=== PATIENT | female | born 1965 | race Caucasian/White ===

== ENCOUNTER 2019-01-18 23:36 | Emergency (ER) | payer OTHER ==
[~2019-01-18] VITALS: Ht 152.4 cm; Wt 70.3 kg
[~2019-01-18 23:36] MED LIST: CYCLOBENZAPRINE10 MG PO; INDERAL10 MG PO; KEPPRA500 MG PO; MAXALT10 MG PO; TIROSINT88 MCG PO; TRIAMTERENE-HCT1 TA1 PO; ULTRAM50 MG PO; ZOFRAN ODT4 MG/UDTAB PO
[2019-01-18 23:41] VITALS: Ht 152.4 cm; Wt 70.3 kg
[2019-01-18] MEDS ORDERED: OMEPRAZOLE20 M1 PO (23:44)
[2019-01-18] MEDS ORDERED: MOBIC7.5 MG PO (23:45)
[2019-01-18] MEDS ORDERED: CYCLOBENZAPRINE10 MG PO (23:45)
[2019-01-18] MEDS ORDERED: MAXALT10 MG PO (23:46)
[2019-01-18] MEDS ORDERED: ULTRAM50 MG PO (23:46)
[2019-01-18] MEDS ORDERED: ZOFRAN4 MG PO (23:46)
[2019-01-18] MEDS ORDERED: PROPRANOLOL HCL20 MG PO (23:47)
[2019-01-18] MEDS ORDERED: MAXZIDE 75/501 TAB PO (23:47)
[2019-01-18] MEDS ORDERED: LEVO-T88 MCG PO (23:48)
[2019-01-18] MEDS ORDERED: HYDROCODON-ACE1 EAC7 PO (23:48)
[2019-01-19 00:47] LABS: BASOPHILS 0.2 % (0-2); EOSINOPHILS 0.5 % (0-7); HEMATOCRIT 40.6 % (36.0-48.0); HEMOGLOBIN 13.7 g/dL (12-16); IMMATURE GRANULOCYTES 0.2 % (0-5); MCH 31.9 pg (26.0-34.0); MCHC 33.7 g/dL (31.0-37.0); MCV 94.4 fL (80.0-100.0); MEAN PLATELET VOLUME 9.2 fL (7.4-10.4); MONOCYTES 5.2 % (2-11); NEUTROPHILS 75.9 % (40-80); PLATELET COUNT 262 10x3/uL (130-400); RDW 13.1 % (11.5-14.5); WBC 10.8 10x3/uL (4.8-10.8)
[2019-01-19 00:56] LABS: ALBUMIN 3.8 g/dL (3.4-5.0); ALKALINE PHOSPHATASE 71 U/L (46-116); ALT (SGPT) 25 U/L (10-68); BILIRUBIN - TOTAL 0.48 mg/dL (0.2-1.3); CALC OSMOLALITY 274 mosm/kg (275-300); CALCIUM 8.1 mg/dL (8.5-10.1); CARBON DIOXIDE 25.9 mmol/L (21.0-32.0); CHLORIDE - SERUM 102 mmol/L (98-107); CREATININE - SERUM 0.8 mg/dL (0.6-1.3); GLUCOSE 120 mg/dL (74-106); POTASSIUM - SERUM 3.3 mmol/L (3.5-5.1); PROTEIN - SERUM 7.3 g/dL (6.4-8.2); SODIUM 136 mmol/L (136-145); UREA NITROGEN 17 mg/dL (7-18); eGFR NON AFRICAN AMERICAN 80 mL/min (90-120)
[2019-01-19 01:13] LABS: APPEARANCE CLEAR (CLEAR); BILIRUBIN NEGATIVE (NEGATIVE); COLOR YELLOW (YELLOW); GLUCOSE NEGATIVE (NEGATIVE); KETONE NEGATIVE (NEGATIVE); NITRITE NEGATIVE (NEGATIVE); PROTEIN NEGATIVE (NEGATIVE); SPECIFIC GRAVITY 1.005 (1.005-1.020); UROBILINOGEN NORMAL (NORMAL)
[2019-01-19 02:45] VITALS: BP 111/72
== END 2019-01-19 02:45 | disposition home or self-care (01) ==
LOC: D.ER 23:36
PROVIDERS: Family Medicine
DX: R55 Syncope and collapse (principal)